=== PATIENT | female | born 1960 | race Hispanic/Latino ===

== ENCOUNTER 2016-10-14 14:32 | Observation (INO) | payer OTHER ==
--- NOTE | 2016-10-14 15:50 | C.PDOC ---
History Of Present Illness 56 year old female presents to the emergency department with complaints of sharp intermittent chest pain radiating down both arms beginning one hour prior to arrival. Patient notes history acid reflux and denies SOB, weakness, or numbness. Time Seen by Provider: 10/14/16 15:23 Chief Complaint (Nursing): Chest Pain History Per: Patient History/Exam Limitations: no limitations Onset/Duration Of Symptoms: Hrs (1 hour prior to arrival ) Current Symptoms Are (Timing): Still Present Quality: "Pain" Associated Symptoms: denies: Nausea, Dyspnea, Diaphoresis, Syncope Recent travel outside of the [place]: No Past Medical History Reviewed: Historical Data, Nursing Documentation, Vital Signs Vital Signs: Last Vital Signs Temp 98.3 F 10/14/16 14:55 Pulse 83 10/14/16 14:55 Resp 16 10/14/16 14:55 BP 133/91 H 10/14/16 14:55 Pulse Ox 98 10/14/16 16:24 - Medical History PMH: No Chronic Diseases Surgical History: No Surg Hx Family History: States: Unknown Family Hx - Social History Hx Alcohol Use: No Hx Substance Use: No - Immunization History Hx Tetanus Toxoid Vaccination: No Hx Influenza Vaccination: No Hx Pneumococcal Vaccination: No Review Of Systems Constitutional: Negative for: Fever, Chills Cardiovascular: Positive for: Chest Pain. Negative for: Palpitations Respiratory: Negative for: Cough, Shortness of Breath Gastrointestinal: Negative for: Nausea, Vomiting Neurological: Negative for: Weakness, Numbness Physical Exam - Physical Exam Appears: Non-toxic, No Acute Distress Skin: Warm, Dry Head: Atraumatic Eye(s): bilateral: Normal Inspection, PERRL, EOMI Oral Mucosa: Moist Neck: Supple Chest: Symmetrical, No Deformity, Other (reproducible chest pain on right side) Cardiovascular: Rhythm Regular Respiratory: Normal Breath Sounds, No Rhonchi, No Wheezing Neurological/Psych: Oriented x3, Normal Speech, Normal Cognition, Normal Cranial Nerves, Normal Motor, Normal Sensation ED Course And Treatment - Laboratory Results Result Diagrams: 10/14/16 17:44 10/14/16 17:44 Lab Interpretation: Normal ECG: Interpreted By Me ECG Rhythm: Sinus Rhythm ECG Interpretation: Normal Rate From EC O2 Sat by Pulse Oximetry: 98 (room air ) Pulse Ox Interpretation: Normal - Radiology CXR: Interpreted by Me CXR Interpretation: Yes: No Acute Disease Progress Note: EKG, UA, and blood work were performed. Patient given asprin. On re evaluation lungs clear Reassessment Condition: Unchanged - Physician Consult Information Physician Contacted: Dc Rosario Outcome Of Conversation: admit to OBS Disposition Discussed With : Dc Rosario Doctor Will See Patient In The: Hospital - Disposition Disposition: HOSPITALIZED Disposition Time: 19:00 Condition: STABLE Forms: [facility] (Uzbek) - POA Present On Arrival: None - Clinical Impression Clinical Impression: Chest pain - Scribe Statement The provider has reviewed the documentation as recorded by the Scribe Lexi Anand All medical record entries made by the Scribe were at my direction and personally dictated by me. I have reviewed the chart and agree that the record accurately reflects my personal performance of the history, physical exam, medical decision making, and the department course for this patient. I have also personally directed, reviewed, and agree with the discharge instructions and disposition. Decision To Admit - Pt Status Changed To: Hospital Disposition Of: Observation - . Bed Request Type: Telemetry Patient Diagnosis: Chest pain
--- NOTE | 2016-10-14 15:52 | RAD ---
HISTORY: COMPARISON: No prior. TECHNIQUE: Chest PA and lateral FINDINGS: LINES AND TUBES: None. LUNG AND PLEURA: L the lungs are well inflated and clear. There are no pleural effusions or pneumothorax. HEART AND MEDIASTINUM: The heart is not enlarged. The hilar and mediastinal contours are within normal limits. SKELETAL STRUCTURES: The bony structures are within normal limits for the patient's age. VISUALIZED UPPER ABDOMEN: Normal. OTHER FINDINGS: None. IMPRESSION: No active pulmonary disease.
[2016-10-14 17:54] LABS: BASO # 0.1 K/uL (0.0-0.2); BASO % 1.3 % (0.0-2.0); EOS # 0.1 K/uL (0.0-0.7); HEMATOCRIT 40.6 % (34.0-47.0); LYMPH % 29.6 % (20.0-40.0); MEAN CELL VOLUME 93.8 fL (81.0-99.0); MEAN CORPUSCULAR HEMOGLOBIN 31.4 pg (27.0-31.0); MEAN CORPUSCULAR HGB CONC 33.4 g/dL (33.0-37.0); MEAN PLATELET VOLUME 8.6 fL (7.2-11.7); MONO # 0.4 K/uL (0.0-0.8); MONO % 6.4 % (0.0-10.0); RED CELL DISTRIBUTION WIDTH 13.8 % (11.5-14.5); WHITE BLOOD COUNT 6.6 K/uL (4.8-10.8)
[2016-10-14 18:02] LABS: CHLORIDE 102 mmol/L (98-107)
[2016-10-14 18:03] LABS: POTASSIUM 4.5 mmol/L (3.6-5.2); SODIUM 139 mmol/L (132-148)
[2016-10-14 18:05] LABS: ALB/GLOB RATIO 1.1 (1.0-2.1); ALKALINE PHOSPHATASE 67 U/L (38-126); ALT/SGPT 31 U/L (9-52); AST/SGOT 26 U/L (14-36); BILIRUBIN,TOTAL 0.9 mg/dL (0.2-1.3); BLOOD UREA NITROGEN 11 mg/dL (7-17); CARBON DIOXIDE 25 mmol/L (22-30); GFR AFRICAN-AMERICAN > 60; TOTAL PROTEIN 7.3 g/dL (6.3-8.3)
[2016-10-14 18:06] LABS: GLUCOSE,RANDOM 87 mg/dL (65-105)
[2016-10-14 19:00] LABS: URINE BILIRUBIN NEGATIVE (NEGATIVE); URINE COLOR Yellow (YELLOW); URINE GLUCOSE (UA) NORMAL (Normal); URINE KETONE TRACE mg/dL (NEGATIVE); URINE LEUKOCYTE ESTERASE NEG Leu/uL (Negative); URINE PROTEIN NEGATIVE (NEGATIVE); URINE UROBILINOGEN NORMAL mg/dL (0.2-1.0); WBC URINE < 1 /hpf (0-5)
[2016-10-14 19:07] LABS: RBC URINE 4 /hpf (0-3); URINE BACTERIA RARE (<OCC); URINE BLOOD 1+ (NEGATIVE)
[2016-10-15] MEDS: Pantoprazole 40 mg EC Tab PO SCH (09:50)
[2016-10-15] MEDS: Enoxaparin 40 mg Syringe SC SCH (09:51)
--- NOTE | 2016-10-15 09:57 | CP.PCM.CON ---
History of Present Illness - History of Present Illness History of Present Illness: 56 y/o female with complaints of chest pain with associated shooting arm left pain continuous some relief withoxygn and aspirin. No sob, nausea ,vomitting, abdominal pane tingling seizure or shortness of breath. Review of Systems - Review of Systems Systems not reviewed;Unavailable: Acuity of Condition - Constitutional Constitutional: absent: Daytime Sleepiness - EENT Eyes: absent: Blurred Vision Ears: absent: Ear Discharge Nose/Mouth/Throat: absent: Nasal Discharge - Cardiovascular Cardiovascular: Chest Pain, Dyspnea. absent: Syncope - Respiratory Respiratory: absent: Dyspnea on Exertion - Gastrointestinal Gastrointestinal: absent: Diarrhea - Genitourinary Genitourinary: absent: Dysuria - Musculoskeletal Musculoskeletal: absent: Back Pain - Integumentary Integumentary: absent: Change in Hair - Neurological Neurological: absent: Abnormal Hearing - Psychiatric Psychiatric: absent: Anxiety - Endocrine Endocrine: absent: Fatigue - Hematologic/Lymphatic Hematologic: absent: Easy Bruising Past Patient History - Past Medical History & Family History Past Medical History?: Yes - Past Social History Smoking Status: Never Smoked - CARDIAC Hx Cardiac Disorders: No - PULMONARY Hx Respiratory Disorders: No - NEUROLOGICAL Hx Neurological Disorder: No - HEENT Hx HEENT Problems: No - RENAL Hx Chronic Kidney Disease: No - ENDOCRINE/METABOLIC Hx Endocrine Disorders: No - HEMATOLOGICAL/ONCOLOGICAL Hx Blood Disorders: No - INTEGUMENTARY Hx Dermatological Problems: No - MUSCULOSKELETAL/RHEUMATOLOGICAL Hx Musculoskeletal Disorders: No Hx Falls: No - GASTROINTESTINAL Hx Gastrointestinal Disorders: Yes Hx Gastroesophageal Reflux: Yes - GENITOURINARY/GYNECOLOGICAL Hx Genitourinary Disorders: No - PSYCHIATRIC Hx Psychophysiologic Disorder: No Hx Substance Use: No - SURGICAL HISTORY Hx Surgeries: Yes Other/Comment: fibroid removed - ANESTHESIA Hx Anesthesia: Yes Hx Anesthesia Reactions: No Hx Malignant Hyperthermia: No Has any member of the family had a problem w/ anesthesia?: No Meds Home Medications: Home Medication List Medication Instructions Recorded Confirmed Type Pantoprazole [Protonix EC Tab] 20 mg PO DAILY #20 ect 10/17/16 Rx Allergies/Adverse Reactions: Allergies Allergy/AdvReac Type Severity Reaction Status Date / Time No Known Allergies Allergy Verified 11/12/16 15:47 - Medications Medications: Current Medications Aspirin (Aspirin Chewable) 81 mg PO DAILY [facility] Last Admin: 10/15/16 09:52 Dose: 81 mg Clopidogrel Bisulfate (Plavix) 75 mg PO DAILY [facility] Last Admin: 10/15/16 09:52 Dose: 75 mg Enoxaparin Sodium (Lovenox) 40 mg SC DAILY [facility] Last Admin: 10/15/16 09:51 Dose: 40 mg Pantoprazole Sodium (Protonix Ec Tab) 40 mg PO DAILY [facility] Last Admin: 10/15/16 09:50 Dose: 40 mg Physical Exam - Constitutional Appears: No Acute Distress - Head Exam Head Exam: NORMOCEPHALIC - Eye Exam Eye Exam: Normal appearance - ENT Exam ENT Exam: Mucous Membranes Moist - Respiratory Exam Respiratory Exam: Clear to Auscultation Bilateral - Cardiovascular Exam Cardiovascular Exam: REGULAR RHYTHM - GI/Abdominal Exam GI & Abdominal Exam: Normal Bowel Sounds - Exam External exam: NORMAL EXTERNAL EXAM - Extremities Exam Extremities exam: Positive for: normal inspection - Neurological Exam Neurological exam: Alert - Psychiatric Exam Psychiatric exam: Normal Affect, Normal Mood - Skin Skin Exam: Dry, Warm Results - Vital Signs Recent Vital Signs: Last Vital Signs Temp 97.3 F L 10/15/16 08:50 Pulse 57 L 10/15/16 08:50 Resp 20 10/15/16 08:50 BP 114/77 10/15/16 08:50 Pulse Ox 99 10/15/16 08:50 - Labs Result Diagrams: 10/14/16 17:44 10/14/16 17:44 Labs: Laboratory Results - last 24 hr 10/14/16 10/14/16 10/15/16 18:55 23:52 08:04 Total Creatine Kinase 39 36 CK-MB (Mass) 0.30 0.27 Troponin I, Quant < 0.0120 < 0.0120 Urine Color Yellow Urine Clarity Clear Urine pH 5.0 Ur Specific [place] 1.014 Urine Protein Negative Urine Glucose (UA) Normal Urine Ketones Trace Urine Blood 1+ H Urine Nitrate Negative Urine Bilirubin Negative Urine Urobilinogen Normal Ur Leukocyte Esterase Neg Urine WBC (Auto) < 1 Urine RBC (Auto) 4 H Ur Squamous Epith Cells 2 Urine Bacteria Rare Assessment & Plan (1) Chest pain Assessment and Plan: rulr out with enzymes ekg stress test Status: Acute
--- NOTE | 2016-10-15 12:37 | CP.PCM.HP ---
History of Present Illness - History of Present Illness History of Present Illness: 56 years old female patient with past medical history of presented to the emergency department with complaint of intermittent chest pain, pain is sharp in nature and most down towards both arms. Patient got relief after oxygen and aspirin. No shortness of breath, fever, nausea, vomiting. No abdominal pain, back pain, weakness, numbness No recent history of trauma, fall or any other injury Present on Admission - Present on Admission Any Indicators Present on Admission: No Past Patient History - Past Medical History & Family History Past Medical History?: Yes - Past Social History Smoking Status: Never Smoked - CARDIAC Hx Cardiac Disorders: No - PULMONARY Hx Respiratory Disorders: No - NEUROLOGICAL Hx Neurological Disorder: No - HEENT Hx HEENT Problems: No - RENAL Hx Chronic Kidney Disease: No - ENDOCRINE/METABOLIC Hx Endocrine Disorders: No - HEMATOLOGICAL/ONCOLOGICAL Hx Blood Disorders: No - INTEGUMENTARY Hx Dermatological Problems: No - MUSCULOSKELETAL/RHEUMATOLOGICAL Hx Musculoskeletal Disorders: No Hx Falls: No - GASTROINTESTINAL Hx Gastrointestinal Disorders: Yes Hx Gastroesophageal Reflux: Yes - GENITOURINARY/GYNECOLOGICAL Hx Genitourinary Disorders: No - PSYCHIATRIC Hx Psychophysiologic Disorder: No Hx Substance Use: No - SURGICAL HISTORY Hx Surgeries: Yes Other/Comment: fibroid removed - ANESTHESIA Hx Anesthesia: Yes Hx Anesthesia Reactions: No Hx Malignant Hyperthermia: No Has any member of the family had a problem w/ anesthesia?: No Meds Allergies/Adverse Reactions: Allergies Allergy/AdvReac Type Severity Reaction Status Date / Time No Known Allergies Allergy Verified 11/15/16 08:54 Physical Exam - Constitutional Appears: Well - Head Exam Head Exam: ATRAUMATIC, NORMAL INSPECTION, NORMOCEPHALIC - Eye Exam Eye Exam: EOMI, Normal appearance, PERRL Pupil Exam: NORMAL ACCOMODATION, PERRL - ENT Exam ENT Exam: Mucous Membranes Moist, Normal Exam - Neck Exam Neck exam: Positive for: Normal Inspection - Respiratory Exam Respiratory Exam: Decreased Breath Sounds - Cardiovascular Exam Cardiovascular Exam: REGULAR RHYTHM, +S1, +S2 - GI/Abdominal Exam GI & Abdominal Exam: Diminished Bowel Sounds, Soft - Rectal Exam Rectal Exam: Deferred Results - Vital Signs Recent Vital Signs: Last Vital Signs Temp 97.3 F L 10/15/16 08:50 Pulse 57 L 10/15/16 08:50 Resp 20 10/15/16 08:50 BP 114/77 10/15/16 08:50 Pulse Ox 99 10/15/16 08:50 - Labs Result Diagrams: 10/14/16 17:44 10/14/16 17:44 Labs: Laboratory Results - last 24 hr 10/14/16 10/14/16 10/15/16 18:55 23:52 08:04 Total Creatine Kinase 39 36 CK-MB (Mass) 0.30 0.27 Troponin I, Quant < 0.0120 < 0.0120 Urine Color Yellow Urine Clarity Clear Urine pH 5.0 Ur Specific [place] 1.014 Urine Protein Negative Urine Glucose (UA) Normal Urine Ketones Trace Urine Blood 1+ H Urine Nitrate Negative Urine Bilirubin Negative Urine Urobilinogen Normal Ur Leukocyte Esterase Neg Urine WBC (Auto) < 1 Urine RBC (Auto) 4 H Ur Squamous Epith Cells 2 Urine Bacteria Rare Assessment & Plan (1) Chest pain Status: Acute (2) Chest pain Status: Acute - Assessment and Plan (Free Text) Plan: Labs and meds reviewed Aspirin Plavix Enzymes EKG noted Stress test Lovenox Cardio on board [employer] vitals Labs next a.m.
[2016-10-15] MEDS ORDERED: Simethicone 80 mg Chewtab PO PRN (14:01)
[2016-10-15] MEDS: Benzocaine/Menthol (Cepacol) Lozenge MT PRN ×2 (14:38→23:36)
[2016-10-15] MEDS ORDERED: Simethicone 80 mg Chewtab PO SCH (16:00)
[2016-10-16] MEDS ORDERED: Aminophylline 25 mg/ml Inj ONE (07:48)
--- NOTE | 2016-10-16 09:43 | CP.PCM.PN ---
<SALMA HAWLEY - Last Filed: 10/16/16 10:31> Subjective - Date & Time of Evaluation Date of Evaluation: 10/16/16 Time of Evaluation: 09:39 - Subjective Subjective: Salma Hawley, PGY1, Cardiology Progress Note: Pt seen and examined at bedside. This AM, pt complains of headache, right sided cp that radiated to right arm and left arm as well, nausea. Denies sob, wheezing , vomiting, diarrhea, cough, abdomial pain, urinary discomfort/hematuria. Pt also c/o heartburn that radiates to her throat as well, she would like further GI workup. Objective - Vital Signs/Intake and Output Vital Signs (last 24 hours): Temp Pulse Resp BP Pulse Ox 97.5 F L 63 20 120/88 99 10/16/16 07:09 10/16/16 07:09 10/16/16 07:09 10/16/16 07:09 10/16/16 07:09 Intake and Output: 10/16/16 10/16/16 06:59 18:59 Intake Total 240 Balance 240 - Medications Medications: Current Medications Aspirin (Aspirin Chewable) 81 mg PO DAILY [facility] Last Admin: 10/15/16 09:52 Dose: 81 mg Benzocaine/Menthol (Cepacol Sore Throat) 1 justin [place] RQ4 PRN PRN Reason: Sore Throat Last Admin: 10/15/16 23:36 Dose: 1 justin Clopidogrel Bisulfate (Plavix) 75 mg PO DAILY [facility] Last Admin: 10/15/16 09:52 Dose: 75 mg Enoxaparin Sodium (Lovenox) 40 mg SC DAILY [facility] Last Admin: 10/15/16 09:51 Dose: 40 mg Pantoprazole Sodium (Protonix Ec Tab) 40 mg PO DAILY [facility] Last Admin: 10/15/16 09:50 Dose: 40 mg Simethicone (Mylicon Chew Tab) 80 mg PO Q4 PRN Last Admin: 10/15/16 14:37 Dose: 80 mg - Constitutional Appears: No Acute Distress - Eye Exam Eye Exam: PERRL - ENT Exam ENT Exam: Mucous Membranes Moist - Respiratory Exam Respiratory Exam: Clear to Ausculation Bilateral - Cardiovascular Exam Cardiovascular Exam: RRR, +S1, +S2. absent: Murmur Additional comments: reproducible right sided cp with palpation at 2nd rib, MCL, and TTP on L upper arm. No erythema, swelling at the site. - GI/Abdominal Exam GI & Abdominal Exam: Soft, Normal Bowel Sounds. absent: Distended, Tenderness - Extremities Exam Extremities Exam: absent: Calf Tenderness, Pedal Edema - Neurological Exam Neurological Exam: Alert, Awake, Oriented x3 - Psychiatric Exam Psychiatric exam: Anxious - Skin Skin Exam: Dry, Intact, Warm Assessment and Plan - Assessment and Plan (Free Text) Assessment: 56F with PMH GERD, presents for cp and tightness with radiation to R and L arm, reproducible with rib palpation, trops neg x3, unlikely cardiac in origin. Will await stress test results and recommend GI workup. Plan: Atypical Chest pain: - pt c/o midsternal cp, radiating to r arm and then to L arm, + heaviness, started at rest while in bed, 3 hours after dinner, + nausea, intermittent, lasting 1 hour, unrelated to activity, never had such pain before. Denies vomiting, diaphoresis, abdominal pain. - Trops negx3, CK 39, on ASA 81mg and Plavix 75mg, awaiting stress test results. - Recommend Protonix, further GI workup? Discussed with attending, Dr. Urbina. Salma Hawley, PGY1 <Gissel Urbina - Last Filed: 10/26/16 09:12> Objective - Vital Signs/Intake and Output Vital Signs (last 24 hours): Temp Pulse Resp BP Pulse Ox 98.1 F 71 18 118/79 98 10/17/16 15:50 10/17/16 15:50 10/17/16 15:50 10/17/16 15:50 10/17/16 15:50 Attending/Attestation - Attestation I have personally seen and examined this patient.: Yes I have fully participated in the care of the patient.: Yes I have reviewed all pertinent clinical information, including history, physical exam and plan: Yes Notes (Text): 10/26/16 09:11 will follow up stress results
[2016-10-16] MEDS: Pantoprazole 40 mg EC Tab PO SCH (09:53)
[2016-10-16] MEDS: Benzocaine/Menthol (Cepacol) Lozenge MT PRN ×3 (09:53→18:59)
[2016-10-16] MEDS: Enoxaparin 40 mg Syringe SC SCH (09:54)
--- NOTE | 2016-10-16 18:29 | CP.PCM.PN ---
Subjective - Date & Time of Evaluation Date of Evaluation: 10/16/16 Time of Evaluation: 12:40 - Subjective Subjective: clinically same Objective - Vital Signs/Intake and Output Vital Signs (last 24 hours): Temp Pulse Resp BP Pulse Ox 97.6 F 68 18 120/81 100 10/16/16 15:31 10/16/16 15:31 10/16/16 15:31 10/16/16 15:31 10/16/16 15:31 Intake and Output: 10/16/16 10/16/16 06:59 18:59 Intake Total 240 450 Balance 240 450 - Medications Medications: Current Medications Aspirin (Aspirin Chewable) 81 mg PO DAILY [facility] Last Admin: 10/16/16 09:53 Dose: 81 mg Benzocaine/Menthol (Cepacol Sore Throat) 1 justin [place] RQ4 PRN PRN Reason: Sore Throat Last Admin: 10/16/16 14:36 Dose: 1 justin Clopidogrel Bisulfate (Plavix) 75 mg PO DAILY [facility] Last Admin: 10/16/16 09:53 Dose: 75 mg Enoxaparin Sodium (Lovenox) 40 mg SC DAILY [facility] Last Admin: 10/16/16 09:54 Dose: 40 mg Ondansetron HCl (Zofran Inj) 4 mg IVP Q6 PRN PRN Reason: Nausea/Vomiting Last Admin: 10/16/16 17:22 Dose: 4 mg Pantoprazole Sodium (Protonix Ec Tab) 40 mg PO DAILY [facility] Last Admin: 10/16/16 09:53 Dose: 40 mg Simethicone (Mylicon Chew Tab) 80 mg PO Q4 PRN Last Admin: 10/15/16 14:37 Dose: 80 mg - Constitutional Appears: Well - Head Exam Head Exam: ATRAUMATIC, NORMAL INSPECTION, NORMOCEPHALIC - Eye Exam Eye Exam: EOMI, Normal appearance, PERRL Pupil Exam: NORMAL ACCOMODATION, PERRL - ENT Exam ENT Exam: Mucous Membranes Moist, Normal Exam - Neck Exam Neck Exam: Full ROM, Normal Inspection. absent: Lymphadenopathy - Respiratory Exam Respiratory Exam: Decreased Breath Sounds - Cardiovascular Exam Cardiovascular Exam: REGULAR RHYTHM, +S1, +S2 - GI/Abdominal Exam GI & Abdominal Exam: Soft, Diminished Bowel Sounds - Rectal Exam Rectal Exam: Deferred Assessment and Plan (1) Chest pain Status: Acute (2) Chest pain Status: Acute - Assessment and Plan (Free Text) Plan: Continue as advised Patient clinically better No acute events overnight Lovenox Aspirin Plavix Zofran Cardio on board Protonix IRENE panel
--- NOTE | 2016-10-17 07:54 | CARD ---
APPROVED REPORT Protocol: PHARMACOLOGICAL STRESS Test Type: LEXISCAN Test Indications: CHEST PAIN Medications: LIST SCAN Medical History: CHEST PAIN Target HR: 166 bpm Resting ECG: normal Resting Heart Rate: 68 bpm Resting Blood Pressure: 110/80mmHg submaximum (85%): 141 bpm TEST SUMMARY [id number]. INFUSIONDOSE 100:[id number]/80.0. [id number]. PROCEDURE Pharmacologic stress testing was performed using 0.4mg per 5ml of regadenoson given intravenously over 7-10 seconds. Reversal agent aminophyline 100 mg, given intravenously for Nausea. POST EXERCISE Reason for Termination: LEXISCAN PROTOCOL COMPLETED Target HR: No Max HR: 78 bpm 72% of Maximum Predicted HR: 166 bpm Exercise duration: 00:30 min:sec, 0 Stage Exercise capacity: 1.0METs Max Blood Pressure: 144/70mmHg Blood Pressure response to exercise: normal resting BP - appropriate response Heart Rate response to exercise: appropriate Chest Pain: No, none Angina index: 0 Arrhythmia: Yes, ST Change: No, none Deviation: 0 mm INTERPRETATION Stress EKG Conclusion: [facility]: Myocardial Perfusion STRESS/REST Imaging Protocol The imaging protocol used to acquire images was Stress Tc-99m/rest Tc-99m 1 day Rest Spect myocardial perfusion imaging was performed in supine position 45 minutes following the injection of 31.6 mCi of Tc-99 Myoview. Gated Stress Spect was performed 45 minutes after intravenous 13.2 mCi Tc-99 Myoview injection. The images were gated to evaluate regional wall motion and calculate ventricular ejection fraction.Images were reconstructed using backfilter projection method in short horizontal and verticle long axis. Spect slices were generated. RESTING DATA EDV78.69ebVZ9.40L/min ESV24.00mlMyocardial Bklf420.00g Av. Heart Rate63.00bpm EF69.00% STRESS DATA EDV80.72fxZA5.00L/min ESV25.00mlMyocardial Zhrw546.00g EF69.00% Regional WT score at stress:1.00 Regional WM score at stress:0.00 Summed WT score at stress:4.00 Av. Heart Rate73.00bpmSummed WM score at stress:0.00 LV Perf. Quant 17 Seg. SSS1.00 17 Seg. SRS1.00 17 Seg. SDS1.00 Stress Defect Extent (% LAD)0.00Rest Defect Extent (% LAD)0.00Rev. Defect Extent (% LAD)0.00 Stress Defect Extent (% LCX)0.00Rest Defect Extent (% LCX)0.00Rev. Defect Extent (% LCX)0.00 Stress Defect Extent (% RCA)0.00Rest Defect Extent (% RCA)0.00Rev. Defect Extent (% RCA)0.00 Stress Defect Extent (% SARAH)0.00Rest Defect Extent (% SARAH)0.00Rev. Defect Extent (% SARAH)0.00 Other Information Quality:Good Overall Exercise Capacity: Good IMPRESSION Normal Myocardial Perfusion exercise stress study Global LV Function: Normal Stress Test Summary: Normal LV Perfusion Summary: Normal Metabolism/Perfusion Defects: There is a defect in the Apical anterior wall. Reversible/Irreversible: There is a small irreversible perfusion/metabolism defect in the Apical anterior wall. Conclusion 1. The stress and resting images show normal perfusion.
--- NOTE | 2016-10-17 09:07 | CP.PCM.PN ---
<SALMA HAWLEY - Last Filed: 10/17/16 15:53> Subjective - Date & Time of Evaluation Date of Evaluation: 10/17/16 Time of Evaluation: 09:02 - Subjective Subjective: Salma Hawley, PGY1 Progress Note for Cardiology-Dr. Urbina: Pt seen and examined at bedside. No acute events overnight. This AM, pt c/o headache, nausea, heartburn. She was able to finish her breakfast. Objective - Vital Signs/Intake and Output Vital Signs (last 24 hours): Temp Pulse Resp BP Pulse Ox 97.5 F L 55 L 20 111/70 98 10/17/16 05:45 10/17/16 05:45 10/17/16 05:45 10/17/16 05:45 10/17/16 05:45 Intake and Output: 10/17/16 10/17/16 06:59 18:59 Intake Total 500 Balance 500 - Medications Medications: Current Medications Aspirin (Aspirin Chewable) 81 mg PO DAILY [facility] Last Admin: 10/16/16 09:53 Dose: 81 mg Benzocaine/Menthol (Cepacol Sore Throat) 1 justin MT RQ4 PRN PRN Reason: Sore Throat Last Admin: 10/17/16 00:00 Dose: 1 justin Clopidogrel Bisulfate (Plavix) 75 mg PO DAILY [facility] Last Admin: 10/16/16 09:53 Dose: 75 mg Enoxaparin Sodium (Lovenox) 40 mg SC DAILY [facility] Last Admin: 10/16/16 09:54 Dose: 40 mg Ondansetron HCl (Zofran Inj) 4 mg IVP Q6 PRN PRN Reason: Nausea/Vomiting Last Admin: 10/16/16 17:22 Dose: 4 mg Pantoprazole Sodium (Protonix Ec Tab) 40 mg PO DAILY [facility] Last Admin: 10/16/16 09:53 Dose: 40 mg Simethicone (Mylicon Chew Tab) 80 mg PO Q4 PRN Last Admin: 10/15/16 14:37 Dose: 80 mg - Constitutional Appears: No Acute Distress - Head Exam Head Exam: ATRAUMATIC, NORMOCEPHALIC - Eye Exam Eye Exam: PERRL - ENT Exam ENT Exam: Mucous Membranes Moist - Respiratory Exam Respiratory Exam: Clear to Ausculation Bilateral - Cardiovascular Exam Cardiovascular Exam: RRR, +S1, +S2. absent: Murmur - GI/Abdominal Exam GI & Abdominal Exam: Soft, Normal Bowel Sounds. absent: Distended, Tenderness - Extremities Exam Extremities Exam: absent: Calf Tenderness, Pedal Edema - Neurological Exam Neurological Exam: Alert, Awake, Oriented x3 - Psychiatric Exam Psychiatric exam: Anxious - Skin Skin Exam: Dry, Intact, Warm Assessment and Plan - Assessment and Plan (Free Text) Assessment: 56F with PMH GERD, presents for midsternal cp and tightness with radiation to R and L arm, reproducible with rib palpation, EKG shows NSR, trops neg x3, stress test normal, unlikely cardiac in origin. Plan: Atypical Chest pain: - On admission, pt c/o midsternal cp, radiating to r arm and then to L arm, + heaviness, started at rest while in bed, 3 hours after dinner, + nausea, intermittent, lasting 1 hour, unrelated to activity, never had such pain before. Denies vomiting, diaphoresis, abdominal pain. - Trops negx3, CK 39, EKG HR 78, NSR, Stress test 10/16 shows normal perfusion, on ASA 81 mg and Plavix 75mg - No further cardiac workup recommended. - Recommend Protonix, further GI workup outpatient as deemed necessary per primary team. Discussed with attending, Dr. Urbina. Salma Hawley, PGY1 <Gissel Urbina - Last Filed: 10/18/16 08:10> Objective - Vital Signs/Intake and Output Vital Signs (last 24 hours): Temp Pulse Resp BP Pulse Ox 98.1 F 71 18 118/79 98 10/17/16 15:50 10/17/16 15:50 10/17/16 15:50 10/17/16 15:50 10/17/16 15:50 Attending/Attestation - Attestation I have personally seen and examined this patient.: Yes I have fully participated in the care of the patient.: Yes I have reviewed all pertinent clinical information, including history, physical exam and plan: Yes Notes (Text): 10/18/16 08:10 no vt less chest pain enzymes negative ef normal. Continue meds
[2016-10-17] MEDS: Enoxaparin 40 mg Syringe SC SCH (10:14)
[2016-10-17] MEDS: Pantoprazole 40 mg EC Tab PO SCH (10:14)
[2016-10-17] MEDS: Benzocaine/Menthol (Cepacol) Lozenge MT PRN ×3 (10:18→15:20)
--- NOTE | 2016-10-17 10:51 | CP.PCM.PN ---
<Natalie Lemon - Last Filed: 10/17/16 15:15> Subjective - Date & Time of Evaluation Date of Evaluation: 10/17/16 Time of Evaluation: 10:51 - Subjective Subjective: Hospitalist resident Progress Note for Dr. Rosario Patient seen and examined at bedside. No acute events overnight. Patient reports to have heartburn after dinner last night, but it resolved shortly after. Patient is tolerating food and liquid well. Denies having headache, weakness, fever, chills, shortness of breath, chest pain, nausea, or vomiting. Objective - Vital Signs/Intake and Output Vital Signs (last 24 hours): Temp Pulse Resp BP Pulse Ox 97.6 F 63 20 116/77 99 10/17/16 09:13 10/17/16 09:13 10/17/16 09:13 10/17/16 09:13 10/17/16 09:13 Intake and Output: 10/17/16 10/17/16 06:59 18:59 Intake Total 500 Balance 500 - Medications Medications: Current Medications Aspirin (Aspirin Chewable) 81 mg PO DAILY [facility] Last Admin: 10/17/16 10:13 Dose: 81 mg Benzocaine/Menthol (Cepacol Sore Throat) 1 justin MT RQ4 PRN PRN Reason: Sore Throat Last Admin: 10/17/16 10:18 Dose: 1 justin Clopidogrel Bisulfate (Plavix) 75 mg PO DAILY [facility] Last Admin: 10/17/16 10:13 Dose: 75 mg Enoxaparin Sodium (Lovenox) 40 mg SC DAILY [facility] Last Admin: 10/17/16 10:14 Dose: 40 mg Ondansetron HCl (Zofran Inj) 4 mg IVP Q6 PRN PRN Reason: Nausea/Vomiting Last Admin: 10/16/16 17:22 Dose: 4 mg Pantoprazole Sodium (Protonix Ec Tab) 40 mg PO DAILY [facility] Last Admin: 10/17/16 10:14 Dose: 40 mg Simethicone (Mylicon Chew Tab) 80 mg PO Q4 PRN Last Admin: 10/15/16 14:37 Dose: 80 mg - Constitutional Appears: Well, Non-toxic, No Acute Distress - Head Exam Head Exam: ATRAUMATIC, NORMAL INSPECTION, NORMOCEPHALIC - Eye Exam Eye Exam: EOMI, Normal appearance, PERRL Pupil Exam: NORMAL ACCOMODATION, PERRL - ENT Exam ENT Exam: Mucous Membranes Moist, Normal Exam - Neck Exam Neck Exam: Full ROM, Normal Inspection. absent: Lymphadenopathy - Respiratory Exam Respiratory Exam: Clear to Ausculation Bilateral, NORMAL BREATHING PATTERN. absent: Wheezes, Respiratory Distress - Cardiovascular Exam Cardiovascular Exam: REGULAR RHYTHM, +S1, +S2. absent: Murmur - GI/Abdominal Exam GI & Abdominal Exam: Soft, Normal Bowel Sounds. absent: Tenderness - Extremities Exam Extremities Exam: Full ROM, Normal Capillary Refill, Normal Inspection. absent : Joint Swelling, Pedal Edema - Back Exam Back Exam: NORMAL INSPECTION - Neurological Exam Neurological Exam: Alert, Awake, CN II-XII Intact, Normal Gait, Oriented x3 - Psychiatric Exam Psychiatric exam: Normal Affect, Normal Mood - Skin Skin Exam: Dry, Intact, Normal Color, Warm Assessment and Plan - Assessment and Plan (Free Text) Assessment: Chest pain, resolved -Exercise stress test unremarkable -Troponin negative x3 -Normal EKG -CXR no active pulmonary disease -Hemodynamically stable -No further cardiac workup recommended per cardiology GERD -Patient will need outpatient endoscopy -Instructed patient to avoid caffeine, alcohol, and spicy food -Will be discharged on Protonix PO Prophylactic measures -lovenox -protonix Case discussed with attending Dr. Rosario <Dc Rosario S - Last Filed: 10/17/16 19:27> Objective - Vital Signs/Intake and Output Vital Signs (last 24 hours): Temp Pulse Resp BP Pulse Ox 98.1 F 71 18 118/79 98 10/17/16 15:50 10/17/16 15:50 10/17/16 15:50 10/17/16 15:50 10/17/16 15:50 Intake and Output: 10/17/16 10/18/16 18:59 06:59 Intake Total 400 Balance 400 Attending/Attestation - Attestation I have personally seen and examined this patient.: Yes I have fully participated in the care of the patient.: Yes I have reviewed all pertinent clinical information, including history, physical exam and plan: Yes Notes (Text): 10/17/16 19:27 Case seen and discussed with the staff and the resident stress test negative for discharge tonight patient is not vomiting anymore patient advised to come to my office in 48 hours for further workup
[2016-10-17 16:19] VITALS: BP 118/79; PULSE 71; RESP 18; TEMP 98.1; O2SAT 98
--- NOTE | 2016-10-17 17:11 | CP.PCM.PN ---
Subjective - Date & Time of Evaluation Date of Evaluation: 10/17/16 Time of Evaluation: 13:20 - Subjective Subjective: clinically same Objective - Vital Signs/Intake and Output Vital Signs (last 24 hours): Temp Pulse Resp BP Pulse Ox 98.1 F 71 18 118/79 98 10/17/16 15:50 10/17/16 15:50 10/17/16 15:50 10/17/16 15:50 10/17/16 15:50 Intake and Output: 10/17/16 10/17/16 06:59 18:59 Intake Total 500 400 Balance 500 400 - Medications Medications: Current Medications Acetaminophen (Tylenol 325mg Tab) 650 mg PO Q6 PRN PRN Reason: Pain, Mild (1-3) Last Admin: 10/17/16 16:23 Dose: 650 mg Aspirin (Aspirin Chewable) 81 mg PO DAILY [facility] Last Admin: 10/17/16 10:13 Dose: 81 mg Benzocaine/Menthol (Cepacol Sore Throat) 1 justin MT RQ4 PRN PRN Reason: Sore Throat Last Admin: 10/17/16 15:20 Dose: 1 justin Clopidogrel Bisulfate (Plavix) 75 mg PO DAILY [facility] Last Admin: 10/17/16 10:13 Dose: 75 mg Enoxaparin Sodium (Lovenox) 40 mg SC DAILY [facility] Last Admin: 10/17/16 10:14 Dose: 40 mg Ondansetron HCl (Zofran Inj) 4 mg IVP Q6 PRN PRN Reason: Nausea/Vomiting Last Admin: 10/16/16 17:22 Dose: 4 mg Pantoprazole Sodium (Protonix Ec Tab) 40 mg PO DAILY [facility] Last Admin: 10/17/16 10:14 Dose: 40 mg Simethicone (Mylicon Chew Tab) 80 mg PO Q4 PRN Last Admin: 10/15/16 14:37 Dose: 80 mg - Constitutional Appears: Well - Head Exam Head Exam: ATRAUMATIC, NORMAL INSPECTION, NORMOCEPHALIC - Eye Exam Eye Exam: EOMI, Normal appearance, PERRL Pupil Exam: NORMAL ACCOMODATION, PERRL - ENT Exam ENT Exam: Mucous Membranes Moist, Normal Exam - Neck Exam Neck Exam: Full ROM, Normal Inspection. absent: Lymphadenopathy - Respiratory Exam Respiratory Exam: Decreased Breath Sounds - Cardiovascular Exam Cardiovascular Exam: REGULAR RHYTHM, +S1, +S2 - GI/Abdominal Exam GI & Abdominal Exam: Soft, Diminished Bowel Sounds - Rectal Exam Rectal Exam: Deferred Assessment and Plan (1) Chest pain Status: Acute (2) Chest pain Status: Acute - Assessment and Plan (Free Text) Plan: hest pain, resolved -Exercise stress test unremarkable -Troponin negative x3 -Normal EKG -CXR no active pulmonary disease -Hemodynamically stable -No further cardiac workup recommended per cardiology GERD -Patient will need outpatient endoscopy -Instructed patient to avoid caffeine, alcohol, and spicy food -Will be discharged on Protonix PO Prophylactic measures -lovenox -protonix
--- NOTE | 2016-10-18 21:54 | CARD ---
APPROVED REPORT EKG Measurement Heart [id number] IN [id number] <Conclusion> Normal sinus rhythm Normal ECG
== END 2016-10-17 18:15 | disposition home or self-care (01) ==
LOC: C.ER 14:32 → C.9E 18:42 → C.6T 20:19 → OBSVTOIN 10-16 18:45 → INTOOBSV 10-16 18:45
PROVIDERS: ADMIT Internal Medicine Nephrology; ATTEND Internal Medicine Nephrology
DX: R07.89 Other chest pain (principal); K21.9 Gastro-esophageal reflux disease without esophagitis
CPT/HCPCS: 36415; 71020; 78452; 80053; 81001; 82553; 83690; 84484; 85025; 93005; 93017; 99285; A9502; G0378; J0280; J1650; J2405; J2785

== ENCOUNTER 2016-11-12 15:41 | Emergency (ER) | payer OTHER ==
[2016-11-12 16:15] VITALS: BP 130/80; PULSE 84
--- NOTE | 2016-11-12 16:38 | C.PDOC ---
History Of Present Illness 56 y/o female presents to ED for evaluation of chest pain that radiates down to her left arm since 13:30 today. Pt reports associated lightheadedness, and palpitations. Patient states that her symptoms today are the same as the last time when she was here on 10/16/16. Of note, pt had negative cardiac work up at that time, including negative nuclear stress test, and enzymesx3. Cardiology evaluated her and recommended GI evaluation. Patient has endoscopy scheduled for 3 days from now. Otherwise, denies any shortness of breath. Time Seen by Provider: 11/12/16 16:20 Chief Complaint (Nursing): Chest Pain History Per: Patient History/Exam Limitations: no limitations Onset/Duration Of Symptoms: Hrs Current Symptoms Are (Timing): Still Present Recent travel outside of the [place]: No Additional History Per: Patient Past Medical History Reviewed: Historical Data, Nursing Documentation, Vital Signs Vital Signs: Last Vital Signs Temp Pulse 84 11/12/16 16:00 Resp 18 11/12/16 16:48 BP 130/80 11/12/16 16:00 Pulse Ox - Medical History PMH: No Chronic Diseases Denies: Chronic Kidney Disease Surgical History: No Surg Hx Family History: States: Unknown Family Hx - Social History Hx Alcohol Use: No Hx Substance Use: No - Immunization History Hx Tetanus Toxoid Vaccination: No Hx Influenza Vaccination: No Hx Pneumococcal Vaccination: No Review Of Systems Except As Marked, All Systems Reviewed And Found Negative. Constitutional: Negative for: Fever, Chills Cardiovascular: Positive for: Chest Pain, Palpitations, Light Headedness Respiratory: Negative for: Cough, Shortness of Breath Gastrointestinal: Negative for: Nausea, Vomiting Musculoskeletal: Positive for: Arm Pain (left) Neurological: Negative for: Weakness, Numbness Physical Exam - Physical Exam Additional Physical Exam Comments: Constitutional: Appears anxious. Head: Normocephalic. Atraumatic. Eyes: PERRL. ENT: Moist mucous membranes. Neck: Supple. Cardiovascular: Regular rate. Radial pulse 2+ bilaterally. Chest: Reproducible chest wall tenderness L parasternal. Respiratory: Clear to auscultation bilaterally. GI: Soft. Epigastric tenderness. Nondistended. Back: No CVA tenderness. Musculoskeletal: No tenderness or swelling of extremities. Skin: No rash. Neurologic: Alert, no focal deficit. Medical Decision Making Medical Decision Making: EKG: NSR. Normal rate. No ST/T wave changes. Pt complaints of similar chest pain as last ED visit. Pt recently had negative cardiac workup. Spoke with Dr. Jennie Bernabe, YAQUELIN, who agrees with discharge and follow up in his office. I instructed patient to return to the ED for any changing or worsening symptoms. Disposition Discussed With .: Carmencita Bernabe Doctor Will See Patient In The: Office Counseled Patient/Family Regarding: Studies Performed, Need For Followup, Rx Given - Disposition Disposition: HOME/ ROUTINE Disposition Time: 16:36 Condition: STABLE Prescriptions: Famotidine/Ca Carb/Mag Hydrox [Pepcid Complete Tablet Chew] 1 each PO BID #28 tab.chew Ibuprofen [Motrin] 600 mg PO Q6 #25 tab Instructions: Costochondritis (ED) Forms: [employer] (Greek) - Clinical Impression Clinical Impression: Chest pain - Scribe Statement The provider has reviewed the documentation as recorded by the Gennaroibheriberto Rosario All medical record entries made by the Gennaroibheriberto were at my direction and personally dictated by me. I have reviewed the chart and agree that the record accurately reflects my personal performance of the history, physical exam, medical decision making, and the department course for this patient. I have also personally directed, reviewed, and agree with the discharge instructions and disposition.
[2016-11-12 16:51] VITALS: RESP 18
--- NOTE | 2016-11-14 19:43 | CARD ---
APPROVED REPORT EKG Measurement Heart [id number] MS [id number] <Conclusion> Normal sinus rhythm Normal ECG
== END 2016-11-12 16:51 | disposition home or self-care (01) ==
LOC: C.ER 15:41
DX: R07.9 Chest pain, unspecified (principal)

== ENCOUNTER 2016-11-15 08:13 | Day surgery (SDC) | payer OTHER ==
[2016-11-15 08:55] VITALS: BMI 23.8
[2016-11-15 09:13] VITALS: TEMP 98.6
[2016-11-15] MEDS ORDERED: Propofol 10 mg/ml Inj (20 ML) ONE (09:58)
[2016-11-15] MEDS ORDERED: Lactated Ringer's 500 ML IV ONE (11:25)
[2016-11-15 11:44] VITALS: O2SAT 100
[2016-11-15 12:35] VITALS: RESP 12
[2016-11-15 14:20] VITALS: BP 126/56; PULSE 64
== END 2016-11-15 14:19 | disposition home or self-care (01) ==
LOC: C.ENDO 08:13
PROVIDERS: ATTEND Internal Medicine Gastroenterology
DX: K20.9 Esophagitis, unspecified (principal); K29.80 Duodenitis without bleeding; K21.9 Gastro-esophageal reflux disease without esophagitis; K44.9 Diaphragmatic hernia without obstruction or gangrene; Z87.891 Personal history of nicotine dependence
CPT/HCPCS: 43239; 88305; 88312; 88313; 88342; J2704; J7120

== ENCOUNTER 2016-12-14 11:41 | Emergency (ER) | payer OTHER ==
[2016-12-14 11:41] VITALS: BMI 23.8
[2016-12-14 12:14] VITALS: RESP 18; TEMP 98; O2SAT 99
--- NOTE | 2016-12-14 12:54 | C.PDOC ---
History Of Present Illness 56 yr old female presents to the ER for evaluation of left foot pain and bruising over the left 5th toe gradually developing since yesterday. Patient states she sustained a blunt injury after striking her foot against a box. Patient denies leg pain, back pain, weakness or numbness. Time Seen by Provider: 12/14/16 11:58 Chief Complaint (Nursing): Lower Extremity Problem/Injury History Per: Patient History/Exam Limitations: no limitations Onset/Duration Of Symptoms: Gradual (1 day) Past Medical History Reviewed: Historical Data, Nursing Documentation, Vital Signs Vital Signs: Last Vital Signs Temp 98 F 12/14/16 12:06 Pulse 66 12/14/16 12:06 Resp 18 12/14/16 12:06 BP 107/73 12/14/16 12:06 Pulse Ox 99 12/14/16 12:57 - Medical History PMH: Anxiety Family History: States: No Known Family Hx - Social History Hx Alcohol Use: No Hx Substance Use: No - Immunization History Hx Tetanus Toxoid Vaccination: No Hx Influenza Vaccination: No Hx Pneumococcal Vaccination: No Review Of Systems Except As Marked, All Systems Reviewed And Found Negative. Musculoskeletal: Positive for: Other ((+) Left foot injury, over the 5th toe.). Negative for: Back Pain, Leg Pain Neurological: Negative for: Weakness, Numbness Physical Exam - Physical Exam Appears: Non-toxic, No Acute Distress Skin: Warm, Dry Extremity: Normal ROM (Left foot), Tenderness (Left foot 5th toe), No Calf Tenderness, Capillary Refill (less than 2sec to left foot), No Deformity, Swelling ((+) Left Foot, 5th Toe - Mild swelling, tenderness and ecchymosis over the 5th MTB.) Neurological/Psych: Oriented x3, Normal Speech, Normal Motor, Normal Sensation, Normal Reflexes ED Course And Treatment O2 Sat by Pulse Oximetry: 99 (RA) Pulse Ox Interpretation: Normal - Other Rad X-Ray - Left Foot X-Ray: Viewed By Me Interpretation: (+)5th proximal phalanx fx Progress Note: Sid tape to left 4-5 th phalans applied, cast shoe applied to left foot. Xray (+) left 5th proximal phalanx fx, min displaced. On re-eavl, pt is afebrile, hemodynamicaly stable. No-toxic.Ambulaoty rin ED. Left foot: exam c/w left 5th toe contusion, no deformiy, no open wound. no neurovascular deficits. results review and discussed with pt. Pt has clinical findings c/w left 5th toe fx. ref. to f/u with Podiatry clinic for re-eval. Medical Decision Making Medical Decision Making: PLAN: * X-Ray - Left Foot * Tramadol PO Disposition Counseled Patient/Family Regarding: Studies Performed, Diagnosis, Need For Followup, Rx Given - Disposition Referrals: Podiatry Clinic [Outside] [facility] [Outside] Disposition: HOME/ ROUTINE Disposition Time: 12:55 Condition: STABLE Additional Instructions: Light duty to Left foot Sid tape for 1 week, cast shoe Take pain medication as need FOLLOW UP WITH PODIATRY CLINIC ON SUNDAY FROM 8AM-NOON LOCATED AT [facility] OR [facility] return to ED if any worsening or new changes. Prescriptions: traMADol [Ultram] 50 mg PO TID #7 tab Instructions: Toe Fracture (ED) Forms: [employer] (Ecuadorean) - Clinical Impression Clinical Impression: Toe fracture - PA / SENIOR HEALTH PHYSICS TECHNICIAN / Resident Statement MD/DO has reviewed & agrees with the documentation as recorded. - Scribe Statement The provider has reviewed the documentation as recorded by the Scribe Funmilayo Khanna All medical record entries made by the Gennaroibheriberto were at my direction and personally dictated by me. I have reviewed the chart and agree that the record accurately reflects my personal performance of the history, physical exam, medical decision making, and the department course for this patient. I have also personally directed, reviewed, and agree with the discharge instructions and disposition.
[2016-12-14 14:05] VITALS: BP 110/75; PULSE 65
--- NOTE | 2016-12-14 14:16 | RAD ---
PROCEDURE: Left Foot Radiographs. HISTORY: injury COMPARISON: None. FINDINGS: BONES: A nondisplaced oblique diaphyses fracture of the medial cortex -left 5th proximal phalanx noted. No intra articular joint extension JOINTS: First metatarsal-phalangeal joint arthrosis. Hallux valgus SOFT TISSUES: Normal. OTHER FINDINGS: 2 mm os tibial externum. Inferior calcaneal spur. Hammertoe like orientations. IMPRESSION: Nondisplaced fracture left proximal phalanx
== END 2016-12-14 14:05 | disposition home or self-care (01) ==
LOC: C.ER 11:41
DX: S92.515A Nondisplaced fracture of proximal phalanx of left lesser toe(s), initial encounter for closed fracture (principal); W22.8XXA Striking against or struck by other objects, initial encounter

== ENCOUNTER 2017-02-20 14:43 | Observation (INO) | payer OTHER ==
[2017-02-20 14:44] VITALS: BMI 24.5
--- NOTE | 2017-02-20 17:26 | C.PDOC ---
History Of Present Illness 56 y/o female presents to ED with complaints of palpitations, fatigue, weakness , intermittent chest pain and nausea for 2 days. Patient reports no prior history of symptoms, no history of DVT or PE. Patient denies fever, chills, vomiting, sob, cough, numbness or any other complaints at this time. Time Seen by Provider: 02/20/17 16:52 Chief Complaint (Nursing): Palpitations History Per: Patient History/Exam Limitations: no limitations Onset/Duration Of Symptoms: Days Current Symptoms Are (Timing): Still Present Quality: "Pain" Associated Symptoms: Nausea Past Medical History Reviewed: Historical Data, Nursing Documentation, Vital Signs Vital Signs: Last Vital Signs Temp 97.8 F 02/21/17 08:14 Pulse 62 02/21/17 08:14 Resp 18 02/21/17 08:14 BP 121/75 02/21/17 08:14 Pulse Ox 100 02/21/17 08:14 - Medical History PMH: Anxiety Surgical History: Endoscopy Family History: States: No Known Family Hx - Social History Hx Alcohol Use: No Hx Substance Use: No - Immunization History Hx Tetanus Toxoid Vaccination: No Hx Influenza Vaccination: Yes Hx Pneumococcal Vaccination: No Review Of Systems Constitutional: Negative for: Fever, Chills Cardiovascular: Positive for: Chest Pain, Palpitations Gastrointestinal: Positive for: Nausea. Negative for: Vomiting, Abdominal Pain Skin: Negative for: Rash Neurological: Positive for: Weakness. Negative for: Numbness Physical Exam - Physical Exam Appears: Non-toxic, No Acute Distress Skin: Normal Color, Warm, Dry, No Rash Head: Atraumatic, Normacephalic Eye(s): bilateral: Normal Inspection Oral Mucosa: Moist Neck: Normal ROM, Supple Chest: Symmetrical Cardiovascular: Rhythm Regular Respiratory: Normal Breath Sounds, No Rales, No Rhonchi, No Wheezing Gastrointestinal/Abdominal: Soft, No Tenderness, No Guarding, No Rebound Extremity: No Pedal Edema, Other (L ortho shoe from recent 5th toe fracture ) Extremity: Bilateral: Normal ROM Neurological/Psych: Oriented x3, Normal Motor, Normal Sensation ED Course And Treatment - Laboratory Results Result Diagrams: 02/20/17 17:21 02/20/17 17:21 ECG: Interpreted By Me, Viewed By Me ECG Rhythm: Sinus Rhythm Interpretation Of ECG: Normal intervals, Normal access, No ST/T wave changes Rate From EC (BPM) O2 Sat by Pulse Oximetry: 98 (RA) Medical Decision Making Medical Decision Making: Discussed with Dr. Bernabe admit to Tele obs for chest pain and palpitations Disposition Discussed With .: Cj Bernabe Doctor Will See Patient In The: Hospital Counseled Patient/Family Regarding: Studies Performed, Diagnosis - Disposition Disposition: HOSPITALIZED Disposition Time: 19:22 Condition: FAIR - Clinical Impression Clinical Impression: Palpitations, Chest pain - Scribe Statement The provider has reviewed the documentation as recorded by the Gennaroibheriberto Rodriguez All medical record entries made by the Jermaine were at my direction and personally dictated by me. I have reviewed the chart and agree that the record accurately reflects my personal performance of the history, physical exam, medical decision making, and the department course for this patient. I have also personally directed, reviewed, and agree with the discharge instructions and disposition.
[2017-02-20 17:27] LABS: BASO # 0.1 K/uL (0.0-0.2); BASO % 1.3 % (0.0-2.0); EOS # 0.2 K/uL (0.0-0.7); EOS % 2.9 % (0.0-4.0); HEMATOCRIT 42.1 % (34.0-47.0); LYMPH # 1.5 K/uL (1.0-4.3); LYMPH % 21.4 % (20.0-40.0); MEAN CELL VOLUME 92.9 fL (81.0-99.0); MEAN CORPUSCULAR HEMOGLOBIN 30.5 pg (27.0-31.0); MEAN CORPUSCULAR HGB CONC 32.8 g/dL (33.0-37.0); MEAN PLATELET VOLUME 8.3 fL (7.2-11.7); MONO # 0.4 K/uL (0.0-0.8); MONO % 5.9 % (0.0-10.0); RED CELL DISTRIBUTION WIDTH 13.1 % (11.5-14.5); WHITE BLOOD COUNT 7.1 K/uL (4.8-10.8)
[2017-02-20 17:35] LABS: ALKALINE PHOSPHATASE 74 U/L (38-126); ALT/SGPT 43 U/L (9-52); AST/SGOT 21 U/L (14-36); BILIRUBIN,TOTAL 0.6 mg/dL (0.2-1.3); BLOOD UREA NITROGEN 13 mg/dL (7-17); CALCIUM 8.7 mg/dl (8.6-10.4); CARBON DIOXIDE 31 mmol/L (22-30); CHLORIDE 104 mmol/L (98-107); GFR AFRICAN-AMERICAN > 60; GLUCOSE,RANDOM 99 mg/dL (65-105); MAGNESIUM 2.1 mg/dL (1.6-2.3); SODIUM 139 mmol/L (132-148); TOTAL PROTEIN 8.2 g/dL (6.3-8.3)
[2017-02-20 18:01] LABS: RBC URINE 8 /hpf (0-3); URINE BACTERIA OCC (<OCC); URINE BILIRUBIN NEGATIVE (NEGATIVE); URINE COLOR Straw (YELLOW); URINE GLUCOSE (UA) NORMAL (Normal); URINE KETONE NEGATIVE (NEGATIVE); URINE LEUKOCYTE ESTERASE TRACE Leu/uL (Negative); URINE PROTEIN NEGATIVE (NEGATIVE); URINE UROBILINOGEN NORMAL mg/dL (0.2-1.0); WBC URINE 2 /hpf (0-5)
[2017-02-20 18:06] LABS: THYROID STIMULATING HORMONE 1.17 mIU/L (0.46-4.68)
[2017-02-20 18:09] LABS: URINE BLOOD 1+ (NEGATIVE)
[2017-02-20 22:01] VITALS: RESP 18
--- NOTE | 2017-02-21 07:42 | RAD ---
PROCEDURE: CHEST RADIOGRAPH, 1 VIEW HISTORY: chest pain COMPARISON: Chest radiographs 10/14/2016. FINDINGS: LUNGS: No infiltrate identified bilaterally. PLEURA: No pneumothorax or pleural fluid seen. CARDIOVASCULAR: Normal. OSSEOUS STRUCTURES: No significant abnormalities. VISUALIZED UPPER ABDOMEN: Normal. OTHER FINDINGS: None. IMPRESSION: No interval acute cardiopulmonary disease appreciated.
--- NOTE | 2017-02-21 08:12 | CP.PCM.CON ---
History of Present Illness - History of Present Illness History of Present Illness: patient seen/examined. consult to follow. presents with palpiations. normal EKG at present. stress test in September 2016 reveals normal myocardial perfusion. recommend echocardiogram today. Likely can d/c late today. outpatient holter monitor. Past Patient History - Past Medical History & Family History Past Medical History?: Yes - Past Social History Smoking Status: Former Smoker - CARDIAC Hx Cardiac Disorders: No - PULMONARY Hx Respiratory Disorders: No - NEUROLOGICAL Hx Neurological Disorder: No - HEENT Hx HEENT Problems: No - RENAL Hx Chronic Kidney Disease: No - ENDOCRINE/METABOLIC Hx Endocrine Disorders: No - HEMATOLOGICAL/ONCOLOGICAL Hx Blood Disorders: No - INTEGUMENTARY Hx Dermatological Problems: Yes - MUSCULOSKELETAL/RHEUMATOLOGICAL Hx Falls: No Hx Fractures: No - GASTROINTESTINAL Hx Gastrointestinal Disorders: Yes Hx Gastroesophageal Reflux: Yes - GENITOURINARY/GYNECOLOGICAL Hx Genitourinary Disorders: No - PSYCHIATRIC Hx Anxiety: Yes Hx Substance Use: No - SURGICAL HISTORY Hx Surgeries: Yes Other/Comment: FIBROID REMOVED - ANESTHESIA Hx Anesthesia: Yes Hx Anesthesia Reactions: Yes (hyperventilation) Meds Allergies/Adverse Reactions: Allergies Allergy/AdvReac Type Severity Reaction Status Date / Time No Known Allergies Allergy Verified 02/20/17 14:47 - Medications Medications: Current Medications Aspirin (Aspirin) 325 mg PO DAILY WILIAN Enoxaparin Sodium (Lovenox) 40 mg SC DAILY WILIAN Rosuvastatin Calcium (Crestor) 2.5 mg PO HS WILIAN Results - Vital Signs Recent Vital Signs: Last Vital Signs Temp 98.2 F 02/20/17 22:00 Pulse 68 02/20/17 22:00 Resp 18 02/20/17 22:00 BP 129/87 02/20/17 22:00 Pulse Ox 97 02/20/17 22:00 - Labs Result Diagrams: 02/20/17 17:21 02/20/17 17:21 Labs: Laboratory Results - last 24 hr 02/20/17 02/20/17 02/20/17 17:21 17:21 17:46 WBC 7.1 RBC 4.53 Hgb 13.8 Hct 42.1 MCV 92.9 MCH 30.5 MCHC 32.8 L RDW 13.1 Plt Count 324 MPV 8.3 Neut % (Auto) 68.5 Lymph % (Auto) 21.4 [place] % (Auto) 5.9 Eos % (Auto) 2.9 Baso % (Auto) 1.3 Neut # 4.9 Lymph # 1.5 [place] # 0.4 Eos # 0.2 Baso # 0.1 Sodium 139 Potassium 4.0 Chloride 104 Carbon Dioxide 31 H Anion Gap 9 L BUN 13 Creatinine 0.6 L Est GFR ( Amer) > 60 Est GFR (Non-Af Amer) > 60 Random Glucose 99 Calcium 8.7 Magnesium 2.1 Total Bilirubin 0.6 AST 21 ALT 43 Alkaline Phosphatase 74 Total Creatine Kinase CK-MB (Mass) Troponin I < 0.0120 NT-Pro-B Natriuret Pep 116 Total Protein 8.2 Albumin 4.0 Globulin 4.2 H Albumin/Globulin Ratio 1.0 TSH 3rd Generation 1.17 Urine Color Straw Urine Clarity Clear Urine pH 7.0 Ur Specific [place] 1.011 Urine Protein Negative Urine Glucose (UA) Normal Urine Ketones Negative Urine Blood 1+ H Urine Nitrate Negative Urine Bilirubin Negative Urine Urobilinogen Normal Ur Leukocyte Esterase Trace Urine WBC (Auto) 2 Urine RBC (Auto) 8 H Ur Squamous Epith Cells 1 Urine Bacteria Occ H 02/21/17 01:43 WBC RBC Hgb Hct MCV MCH MCHC RDW Plt Count MPV Neut % (Auto) Lymph % (Auto) [place] % (Auto) Eos % (Auto) Baso % (Auto) Neut # Lymph # [place] # Eos # Baso # Sodium Potassium Chloride Carbon Dioxide Anion Gap BUN Creatinine Est GFR ( Amer) Est GFR (Non-Af Amer) Random Glucose Calcium Magnesium Total Bilirubin AST ALT Alkaline Phosphatase Total Creatine Kinase 44 CK-MB (Mass) 0.57 Troponin I < 0.0120 NT-Pro-B Natriuret Pep Total Protein Albumin Globulin Albumin/Globulin Ratio TSH 3rd Generation Urine Color Urine Clarity Urine pH Ur Specific [place] Urine Protein Urine Glucose (UA) Urine Ketones Urine Blood Urine Nitrate Urine Bilirubin Urine Urobilinogen Ur Leukocyte Esterase Urine WBC (Auto) Urine RBC (Auto) Ur Squamous Epith Cells Urine Bacteria
[2017-02-21 08:15] VITALS: BP 121/75; PULSE 62; TEMP 97.8
[2017-02-21 08:19] LABS: CHOLESTEROL 164 mg/dL (0-199)
--- NOTE | 2017-02-21 08:38 | CP.PCM.PN ---
Subjective - Date & Time of Evaluation Date of Evaluation: 02/21/17 Time of Evaluation: 08:27 - Subjective Subjective: Medicine Progress Note Patient is a 56 year old female who presented to the ED yesterday with complaint of palpitations, diaphoresis, and left sided chest pain. The patient states that she has had these symptoms associated with fatigue for the past 2 days. The patient took Advil which did not help. This same event occurred several months ago and resolved on its own after one week. The patient had an exercise stress test several months ago that was normal. Patient states that she feels well this morning with no acute complaints. Denies chest pain, shortness of breath, palpitations, cough, fever, dizziness, and headache. PMHx: denies Home meds: none Surgical Hx: uterine fibroid removal Family Hx: Mom-DM, Dad- emphysema () Social Hx: Denies EtOH use; hx tobacco us- smoked [id number] years, quit 9 years ago; denies drug use Allergies: NKDA Objective - Vital Signs/Intake and Output Vital Signs (last 24 hours): Temp Pulse Resp BP Pulse Ox 97.8 F 62 18 121/75 100 02/21/17 08:14 02/21/17 08:14 02/21/17 08:14 02/21/17 08:14 02/21/17 08:14 - Medications Medications: Current Medications Aspirin (Aspirin) 325 mg PO DAILY WILIAN Enoxaparin Sodium (Lovenox) 40 mg SC DAILY WILIAN Rosuvastatin Calcium (Crestor) 2.5 mg PO HS WILIAN - Labs Labs: 02/20/17 17:21 02/20/17 17:21 - Constitutional Appears: Non-toxic - Head Exam Head Exam: NORMOCEPHALIC - Eye Exam Eye Exam: EOMI, Normal appearance Pupil Exam: NORMAL ACCOMODATION - ENT Exam ENT Exam: Mucous Membranes Moist, Normal Exam - Neck Exam Neck Exam: Normal Inspection - Respiratory Exam Respiratory Exam: Clear to Ausculation Bilateral, NORMAL BREATHING PATTERN. absent: Decreased Breath Sounds, Rhonchi, Wheezes, Respiratory Distress - Cardiovascular Exam Cardiovascular Exam: REGULAR RHYTHM, +S1, +S2 - GI/Abdominal Exam GI & Abdominal Exam: Soft, Normal Bowel Sounds. absent: Tenderness - Extremities Exam Extremities Exam: Normal Inspection. absent: Pedal Edema - Back Exam Back Exam: NORMAL INSPECTION - Neurological Exam Neurological Exam: Alert, Awake, CN II-XII Intact, Oriented x3 - Psychiatric Exam Psychiatric exam: Normal Affect, Normal Mood - Skin Skin Exam: Dry, Intact, Normal Color, Warm Assessment and Plan - Assessment and Plan (Free Text) Assessment: Palpitations Tele/obs Consulted insemination worker Dr Swanson- recommends holter monitor TSH 1.17 HDL 46 LDL 92 Cholesterol 164 Triglycerides 117 Chest Pain ROMIs negative x2 EKG shows no acute changes Chest Xray- no acute abnormalities f/u ECHO ASA 325mg PO daily Crestor 2.5mg PO HS Prophylactic measure Lovenox 40mg SC daily SCDs ambulatory
[2017-02-21] MEDS ORDERED: Enoxaparin 40 mg Syringe SC SCH (10:00)
[2017-02-21] MEDS ORDERED: Benzocaine/Menthol (Cepacol) Lozenge MT PRN (10:03)
[2017-02-21] MEDS ORDERED: Rosuvastatin Calcium 2.5 mg Tab PO SCH (22:00)
[2017-02-22 18:49] VITALS: O2SAT 98
== END 2017-02-21 15:20 | disposition home or self-care (01) ==
LOC: C.ER 14:43 → C.9E 19:22 → C.6T 21:51
PROVIDERS: ADMIT Internal Medicine Pulmonary Disease; ATTEND Internal Medicine Pulmonary Disease
DX: R07.9 Chest pain, unspecified (principal); R00.2 Palpitations; Z87.891 Personal history of nicotine dependence; K21.9 Gastro-esophageal reflux disease without esophagitis; F41.9 Anxiety disorder, unspecified; Z79.82 Long term (current) use of aspirin
CPT/HCPCS: 36415; 71010; 80053; 80061; 81001; 83735; 83880; 84443; 84484; 85025; 93306; 99285; G0378; J1650

== ENCOUNTER 2017-08-20 12:57 | Emergency (ER) | payer OTHER ==
[2017-08-20 12:57] VITALS: BMI 24.5
[2017-08-20 13:18] VITALS: O2SAT 98
[2017-08-20] MEDS ORDERED: Sodium Chloride 0.9% 1,000 ML IV ONE (13:34)
[2017-08-20 14:00] LABS: BASO % 0.2 % (0.0-2.0); EOS # 0.4 K/uL (0.0-0.7); EOS % 4.9 % (0.0-4.0); HEMOGLOBIN 15.5 g/dL (11.0-16.0); LYMPH # 1.5 K/uL (1.0-4.3); LYMPH % 18.9 % (20.0-40.0); MEAN CELL VOLUME 93.4 fL (81.0-99.0); MEAN CORPUSCULAR HEMOGLOBIN 31.9 pg (27.0-31.0); MEAN CORPUSCULAR HGB CONC 34.2 g/dL (33.0-37.0); MEAN PLATELET VOLUME 8.4 fL (7.2-11.7); MONO # 0.5 K/uL (0.0-0.8); MONO % 5.6 % (0.0-10.0); NEUT # 5.6 K/uL (1.8-7.0); NEUT % 70.4 % (50.0-75.0); NRBC % 0.1 % (0.0-2.0); RBC 4.86 Mil/uL (3.80-5.20); RED CELL DISTRIBUTION WIDTH 13.8 % (11.5-14.5)
[2017-08-20 14:04] LABS: SQUAMOUS EPITHIAL 4 /hpf (0-5); URINE BACTERIA RARE (<OCC); URINE BILIRUBIN NEGATIVE (NEGATIVE); URINE BLOOD 1+ (NEGATIVE); URINE CLARITY Clear (Clear); URINE COLOR Yellow (YELLOW); URINE GLUCOSE (UA) NORMAL (Normal); URINE LEUKOCYTE ESTERASE 1+ Leu/uL (Negative); URINE PROTEIN NEGATIVE (NEGATIVE); URINE UROBILINOGEN NORMAL mg/dL (0.2-1.0)
[2017-08-20] MEDS ORDERED: Sodium Chloride 0.9% 1,000 ML ONE (14:08)
[2017-08-20 14:14] LABS: ALBUMIN 4.3 g/dL (3.5-5.0); ALT/SGPT 24 U/L (9-52); AST/SGOT 26 U/L (14-36); BLOOD UREA NITROGEN 15 mg/dL (7-17); CALCIUM 9.6 mg/dl (8.6-10.4); GFR AFRICAN-AMERICAN > 60; GFR NON-AFRICAN AMERICAN > 60; LIPASE 112 U/L (23-300)
--- NOTE | 2017-08-20 14:41 | C.PDOC ---
Time Seen by Provider: 08/20/17 13:23 Chief Complaint (Nursing): Dental Pain History Per: Patient Onset/Duration Of Symptoms: Days (few) Current Symptoms Are (Timing): Still Present Severity: Moderate Quality: Positive for: "Pain" Additional History Per: Prior Records Past Medical History Reviewed: Historical Data, Nursing Documentation, Vital Signs Vital Signs: Last Vital Signs Temp 98.6 F 08/20/17 13:15 Pulse 91 H 08/20/17 13:15 Resp 18 08/20/17 13:15 BP 143/98 H 08/20/17 13:15 Pulse Ox 98 08/20/17 13:15 - Medical History PMH: Anxiety, GERD Surgical History: Endoscopy Family History: States: Unknown Family Hx - Social History Hx Alcohol Use: Yes Hx Substance Use: No - Immunization History Hx Tetanus Toxoid Vaccination: Yes Hx Influenza Vaccination: Yes Hx Pneumococcal Vaccination: No Review Of Systems Except As Marked, All Systems Reviewed And Found Negative. Constitutional: Positive for: Fever (subjective), Malaise ENT: Positive for: Nose Congestion, Mouth Pain. Negative for: Throat Pain Cardiovascular: Negative for: Chest Pain Respiratory: Positive for: Cough. Negative for: Shortness of Breath Gastrointestinal: Positive for: Nausea, Vomiting. Negative for: Diarrhea Genitourinary: Negative for: Dysuria Musculoskeletal: Negative for: Neck Pain Skin: Negative for: Rash Neurological: Positive for: Headache. Negative for: Weakness, Numbness, Seizures Physical Exam - Physical Exam Appears: Non-toxic, No Acute Distress Skin: Normal Color, Warm, Dry, No Rash Head: Atraumatic, Normacephalic Eye(s): bilateral: Normal Inspection, PERRL, EOMI Oral Mucosa: Moist, No Drooling, No Trismus Teeth: Caries, Tender To Palpation Gingiva: No Abscess Throat: Normal Neck: Normal ROM, Supple Lymphatic: No Adenopathy Cardiovascular: Rhythm Regular Respiratory: Normal Breath Sounds, No Accessory Muscle Use Gastrointestinal/Abdominal: Soft, No Tenderness Back: No CVA Tenderness Extremity: Normal ROM Neurological/Psych: Oriented x3, Normal Speech, Normal Cognition, Normal Motor, Normal Sensation ED Course And Treatment - Laboratory Results Result Diagrams: 08/20/17 13:56 08/20/17 13:56 Lab Interpretation: No Acute Changes O2 Sat by Pulse Oximetry: 98 Pulse Ox Interpretation: Normal Reassessment Condition: Improved Disposition Counseled Patient/Family Regarding: Studies Performed, Diagnosis, Need For Followup, Rx Given - Disposition Referrals: Carmencita Bernabe MD [Medical Doctor] - Disposition: HOME/ ROUTINE Disposition Time: 14:41 Condition: STABLE Additional Instructions: Follow up with your doctor and with a Dentist for further evaluation and treatment. Return to the ER if you develop worsening of symptoms or if you have any other concerns. Prescriptions: Amoxicillin 875 mg PO BID #20 tab Famotidine [Pepcid] 20 mg PO BID #30 tab Ondansetron [Zofran] 4 mg PO Q8H PRN #15 tab PRN Reason: Nausea/Vomiting Instructions: Dental Pain (DC) Forms: [employer] [facility] (Finnish) - Clinical Impression Clinical Impression: Toothache
[2017-08-20 14:49] VITALS: BP 107/70; PULSE 60; RESP 16; TEMP 98.3
== END 2017-08-20 15:02 | disposition home or self-care (01) ==
LOC: C.ER 12:57
DX: K08.89 Other specified disorders of teeth and supporting structures (principal)
CPT/HCPCS: 80053; 81001; 83690; 83735; 85025; 96361; 96374; 96375; 99285; J1885; J2765; J7030